=== PATIENT | female | born 1970 | race African-American/Black ===

== ENCOUNTER 2023-12-25 15:49 | Inpatient (IN) | payer MEDICAID ==
[~2023-12-25] VITALS: Ht 170.2 cm; Wt 97.1 kg
[2023-12-25] MEDS ORDERED: VANCOMYCIN 1G PREMIX 200 ML IV ONE (16:45)
[2023-12-25] MEDS: SODIUM CHLORIDE 0.9% 1000ML BAG (SEPSIS BOLUS) IV ONE (17:00)
[2023-12-25] MEDS: MORPHINE SULFATE 4 MG/ML CPJ (NOT FOR IM USE) IV STA ×2 (17:16→20:10)
[2023-12-25] MEDS: PIPERACILLIN/TAZO 3.375G/50ML 50 ML IV ONE (17:16)
[2023-12-25] MEDS: ONDANSETRON HCL 4MG/2ML INJ IV STA ×2 (17:16→20:10)
[2023-12-25 17:17] LABS: BASOPHILS % 0.6 % (0.0-2.0); DIFFERENTIAL COMMENT 0; EOSINOPHILS % 0.4 % (0.0-5.0); HEMATOCRIT. 41.6 % (36.0-48.0); HEMOGLOBIN. 13.3 g/dL (12.0-16.0); LYMPHOCYTES % 26.7 % (20.0-50.0); MEAN CORPUSCULAR HEMOGLOBIN 25.6 pg (28.0-32.0); MEAN CORPUSCULAR HGB CONC 32.1 g/dL (31.0-37.0); MEAN CORPUSCULAR VOLUME 79.7 fL (81.0-99.0); MEAN PLATELET VOLUME 10.2 fl (7.4-10.4); MONOCYTES % 4.6 % (2.0-8.0); NEUTROPHILS % 67.7 % (40.0-76.0); PLATELET 207 x1000/uL (130-400); RED BLOOD CELL COUNT 5.22 mill/uL (4.2-5.4); RED CELL DISTRIBUTION WIDTH 21.5 % (11.6-14.6); WHITE BLOOD COUNT 7.9 x1000/uL (4.5-11.0)
[2023-12-25 17:29] LABS: ALANINE AMINOTRANSFERASE 15 IU/L (10-49); ALBUMIN 4.4 g/dL (3.2-4.8); ASPARTATE AMINOTRANSFERASE 20 IU/L (<34); BILIRUBIN TOTAL 0.4 mg/dL (0.1-1.0); CALCIUM 9.4 mg/dL (8.7-10.4); CARBON DIOXIDE 23 mEq/L (21-32); CHLORIDE 104 mEq/L (98-107); CREATININE 0.7 mg/dL (0.6-1.0); GLUCOSE 238 mg/dL (70-105); POTASSIUM 3.5 mEq/L (3.5-5.1); PROTEIN TOTAL 7.7 g/dL (6.0-8.3); SODIUM 137 mEq/L (136-145); UREA NITROGEN BLOOD 7 mg/dL (9-23)
[2023-12-25 17:31] LABS: TROPONIN I HIGH SENSITIVITY < 4 ng/L (3.0-34)
[2023-12-25 20:14] LABS: PARTIAL THROMBOPLASTIN TIME 24.3 sec (23.4-31.0); PROTHROMBIN TIME 10.7 sec (9.6-11.0)
[2023-12-25] MEDS: VANCOMYCIN 1G PREMIX 200 ML IV NR (20:49)
[2023-12-25 23:05] VITALS: BP 136/79; PULSE 90; RESP 18; TEMP 98.6
[2023-12-26] VITALS: BP 136/79; PULSE 95; RESP 20; TEMP 98.6
[2023-12-26] MEDS ORDERED: DOCUSATE SODIUM 100MG CAPSULE PO PRN (00:30)
[2023-12-26] MEDS ORDERED: IPRATROPIUM/ALBUTEROL 0.5-3(2.5)MG/3ML NEB HHN PRN (00:30)
[2023-12-26] MEDS ORDERED: DEXTROSE 50% WATER 50ML SYRINGE IV PRN (00:30)
[2023-12-26] MEDS ORDERED: ACETAMINOPHEN 325MG TABLET PO PRN (00:30)
[2023-12-26] MEDS ORDERED: MAGNESIUM/ALUMINUM HYDROXIDE/SIMETHICONE 30ML UDC PO PRN (00:30)
[2023-12-26] MEDS ORDERED: ONDANSETRON HCL 4MG/2ML INJ IV PRN (00:30)
[2023-12-26] MEDS ORDERED: NALOXONE HCL 0.4MG/ML VIAL IV PRN (00:45)
[2023-12-26] MEDS: PANTOPRAZOLE SODIUM 40 MG/VIAL IV SCH (01:17)
[2023-12-26] MEDS: SODIUM CHLORIDE 0.9% 1,000 ML IV ONE (01:18)
[2023-12-26] MEDS: MORPHINE SULFATE 2 MG/ML CPJ (NOT FOR IM USE) IV PRN (01:19)
[2023-12-26] MEDS: AMLODIPINE 5MG TABLET PO SCH (01:45)
[2023-12-26 04:00] VITALS: BP 123/85; PULSE 89; RESP 20; TEMP 98.1
[2023-12-26] MEDS: BLOOD SUGAR DIAGNOSTIC STRIP TEST SCH (05:50)
[2023-12-26] MEDS: ASPIRIN 81MG TABLET PO NR ×2 (05:50→08:37)
[2023-12-26 06:50] LABS: CLARITY URINE CLEAR (CLEAR); COLOR URINE YELLOW (YELLOW); GLUCOSE URINE 1+ (NEGATIVE); KETONES URINE 1+ (NEGATIVE); LEUKOCYTE ESTERASE URINE NEGATIVE (NEGATIVE); NITRITE URINE NEGATIVE (NEGATIVE); OCCULT BLOOD URINE NEGATIVE (NEGATIVE); PROTEIN URINE NEGATIVE (NEGATIVE)
[2023-12-26 07:24] LABS: HEMATOCRIT 35.9 % (36.0-48.0); HEMOGLOBIN 11.6 g/dL (12.0-16.0); MEAN CORPUSCULAR HEMOGLOBIN 25.5 pg (28.0-32.0); MEAN CORPUSCULAR HGB CONC 32.2 g/dL (31.0-37.0); MEAN CORPUSCULAR VOLUME 79.2 fL (81.0-99.0); PLATELET 177 x1000/uL (130-400); RED BLOOD CELL COUNT 4.53 mill/uL (4.2-5.4); RED CELL DISTRIBUTION WIDTH 21.6 % (11.6-14.6); WHITE BLOOD COUNT 6.1 x1000/uL (4.5-11.0)
[2023-12-26 07:28] LABS: *AMPHETAMINES SCREEN URINE NEGATIVE (NEGATIVE); *BARBITURATES SCREEN URINE NEGATIVE (NEGATIVE); *BENZODIAZEPINES SCREEN URINE NEGATIVE (NEGATIVE); *COCAINE SCREEN URINE NEGATIVE (NEGATIVE); CANNABINOID URINE SCREEN PRESUMPTIVE POSITIVE (NEGATIVE); ECSTASY MDMA SCREEN URINE NEGATIVE (NEGATIVE); METHADONE URINE SCREEN Neg (NEGATIVE); OPIATES URINE SCREEN PRESUMPTIVE POSITIVE (NEGATIVE); PHENCYCLIDINE URINE SCREEN NEGATIVE (NEGATIVE)
[2023-12-26 07:37] LABS: CALCIUM 8.8 mg/dL (8.7-10.4); CARBON DIOXIDE 26 mEq/L (21-32); CHLORIDE 103 mEq/L (98-107); CREATINE KINASE 62 IU/L (34-145); CREATININE 0.6 mg/dL (0.6-1.0); GLUCOSE 181 mg/dL (70-105); IRON 59 ug/dL (50-170); POTASSIUM 3.1 mEq/L (3.5-5.1); SODIUM 138 mEq/L (136-145); TOTAL IRON BINDING CAPACITY 182 ug/dl (250-425); UREA NITROGEN BLOOD 9 mg/dL (9-23)
[2023-12-26 07:44] LABS: SQUAMOUS EPITHELIAL CELL URINE FEW /lpf (RARE/1+)
[2023-12-26 07:47] LABS: RBC URINE 0-2 /hpf (0-2); WBC URINE 0-2 /hpf (0-2)
[2023-12-26 07:48] LABS: BACTERIA URINE NONE SEEN
[2023-12-26 08:00] VITALS: BP 147/93; PULSE 91; RESP 18; TEMP 98.1
[2023-12-26] MEDS ORDERED: HEPARIN 1000 UNITS/ML 10ML ONE ×2 (08:07→10:14)
[2023-12-26] MEDS ORDERED: IODIXANOL 320MG/ML 100 ML BOTTLE IV ONE ×3 (08:07→10:15)
[2023-12-26] MEDS ORDERED: LIDOCAINE HCL 1% 20ML VIAL (Pyxis) INJ ONE (08:07)
[2023-12-26] MEDS: INSULIN LISPRO 100 UNITS/ML SUBCUT SCH (08:38)
[2023-12-26] MEDS ORDERED: KCL 20MEQ/100ML PREMIX 100 ML IV ONE (08:54)
[2023-12-26] MEDS ORDERED: MIDAZOLAM HCL 2 MG/2 ML VIAL ONE (09:00)
[2023-12-26] MEDS ORDERED: FENTANYL CITRATE/PF 50MCG/ML 2ML VIAL ONE ×2 (09:00→11:02)
[2023-12-26] MEDS: KCL 20MEQ/100ML PREMIX 100 ML IV SCH (10:30)
[2023-12-26] MEDS ORDERED: IOHEXOL-350 100 ML BOTTLE ONE (11:29)
[2023-12-26 12:00] VITALS: BP 127/51; PULSE 76; RESP 18; TEMP 98.6
[2023-12-26] MEDS ORDERED: CLOPIDOGREL 75MG TABLET ONE (12:06)
[2023-12-26] MEDS: SODIUM CHLORIDE 0.9% 1,000 ML IV SCH (12:53)
[2023-12-26] MEDS: POTASSIUM CHLORIDE 20MEQ TABLET SR PO NR (15:21)
[2023-12-26 16:00] VITALS: BP 156/100; PULSE 91; RESP 18; TEMP 98
[2023-12-26 16:26] LABS: CREATINE KINASE 57 IU/L (34-145)
[2023-12-26] MEDS: INSULIN LISPRO 100 UNITS/ML SUBCUT ONE (17:45)
[2023-12-26] MEDS: INSULIN LISPRO 100 UNITS/ML SUBCUT NR (18:09)
[2023-12-26 20:00] VITALS: BP 140/75; PULSE 91; RESP 18; TEMP 97.2
[2023-12-26] MEDS: ATORVASTATIN CALCIUM 40MG TABLET PO SCH (21:11)
[2023-12-27] VITALS: BP 145/91; PULSE 85; RESP 18; TEMP 97.5
[2023-12-27 04:00] VITALS: BP 134/92; PULSE 89; RESP 19; TEMP 97.3
[2023-12-27 06:24] LABS: BASOPHILS % 0.3 % (0.0-2.0); DIFFERENTIAL COMMENT 0; EOSINOPHILS % 0.7 % (0.0-5.0); HEMATOCRIT. 36.3 % (36.0-48.0); HEMOGLOBIN. 12.2 g/dL (12.0-16.0); LYMPHOCYTES % 24.1 % (20.0-50.0); MEAN CORPUSCULAR HEMOGLOBIN 26.2 pg (28.0-32.0); MEAN CORPUSCULAR HGB CONC 33.5 g/dL (31.0-37.0); MEAN CORPUSCULAR VOLUME 78.2 fL (81.0-99.0); MEAN PLATELET VOLUME 10.6 fl (7.4-10.4); MONOCYTES % 5.7 % (2.0-8.0); NEUTROPHILS % 69.2 % (40.0-76.0); PLATELET 172 x1000/uL (130-400); RED BLOOD CELL COUNT 4.65 mill/uL (4.2-5.4); RED CELL DISTRIBUTION WIDTH 21.6 % (11.6-14.6); WHITE BLOOD COUNT 5.4 x1000/uL (4.5-11.0)
[2023-12-27 06:39] LABS: T4 FREE 1.05 ng/dL (0.89-1.76); THYROID STIMULATING HORMONE 2.11 uIU/mL (0.55-4.78)
[2023-12-27 08:00] VITALS: BP 134/92; PULSE 88; RESP 19; TEMP 97.3
[2023-12-27] MEDS: ASPIRIN 81MG TABLET PO SCH (09:17)
[2023-12-27 10:11] VITALS: BP 130/52; PULSE 85; TEMP 97.5; O2SAT 100
[2023-12-27 10:46] VITALS: BP 138/82; PULSE 85; RESP 19; TEMP 97.3
[2023-12-27 12:00] VITALS: BP 138/81; PULSE 83; RESP 20; TEMP 97.3
[2023-12-28] MEDS ORDERED: FAMOTIDINE 20MG TABLET PO SCH (09:00)
== END 2023-12-27 13:10 | disposition home or self-care (01) | DRG 182 ==
LOC: ER 15:49 → 7WST 21:35 → EDBEDREQTM 21:48 → EDBEDREQ 21:48
PROVIDERS: ADMIT Hospitalist; ATTEND Hospitalist
PROC: 047P3ZZ Dilation of Right Anterior Tibial Artery, Percutaneous Approach (ICD-10-PCS; principal; 2023-12-26)
PROC: B41D1ZZ Fluoroscopy of Aorta and Bilateral Lower Extremity Arteries using Low Osmolar Contrast (ICD-10-PCS; 2023-12-26)
PROC: 04CP3ZZ Extirpation of Matter from Right Anterior Tibial Artery, Percutaneous Approach (ICD-10-PCS; 2023-12-26)
PROC: 047M3ZZ Dilation of Right Popliteal Artery, Percutaneous Approach (ICD-10-PCS; 2023-12-26)
DX: E11.51 Type 2 diabetes mellitus with diabetic peripheral angiopathy without gangrene (principal); I70.221 Atherosclerosis of native arteries of extremities with rest pain, right leg; D50.9 Iron deficiency anemia, unspecified; E66.01 Morbid (severe) obesity due to excess calories; F17.210 Nicotine dependence, cigarettes, uncomplicated; F12.90 Cannabis use, unspecified, uncomplicated; I10 Essential (primary) hypertension; Z79.01 Long term (current) use of anticoagulants; Z79.4 Long term (current) use of insulin; Z79.82 Long term (current) use of aspirin; Z79.899 Other long term (current) drug therapy; Z68.33 Body mass index [BMI] 33.0-33.9, adult
CPT/HCPCS: 36415; 71045; 75635; 80048; 80053; 80061; 80305; 81003; 82550; 82728; 82962; 83036; 83540; 83550; 83880; 84439; 84443; 84484; 85025; 85027; 85347; 86850; 86900; 93005; 93970; 99285; C9113; J1644; J1815; J2250; J2270; J2405; J2543; J3010; J3370; J3480; J3490; J7030; Q9967

== ENCOUNTER 2024-02-08 16:05 | Emergency (ER) | payer MEDICAID ==
[~2024-02-08] VITALS: Ht 170.2 cm; Wt 94.0 kg
[2024-02-08 16:45] VITALS: BP 120/72; PULSE 76; RESP 16; TEMP 97.7; O2SAT 99
== END 2024-02-08 18:38 | disposition home or self-care (01) ==
LOC: ER 16:05
DX: Z45.2 Encounter for adjustment and management of vascular access device (principal); E11.9 Type 2 diabetes mellitus without complications; I10 Essential (primary) hypertension
CPT/HCPCS: 99281

== ENCOUNTER 2024-02-09 18:07 | Emergency (ER) | payer MEDICAID ==
[~2024-02-09] VITALS: Ht 170.2 cm; Wt 94.0 kg
[2024-02-09 18:19] VITALS: O2SAT 100
[2024-02-09 19:53] LABS: BASOPHILS % 0.4 % (0.0-2.0); EOSINOPHILS % 1.8 % (0.0-5.0); HEMATOCRIT. 43.4 % (36.0-48.0); HEMOGLOBIN. 12.6 g/dL (12.0-16.0); LYMPHOCYTES % 39.8 % (20.0-50.0); MEAN CORPUSCULAR HEMOGLOBIN 25.5 pg (28.0-32.0); MEAN PLATELET VOLUME 8.9 fl (7.4-10.4); MONOCYTES % 4.6 % (2.0-8.0); NEUTROPHILS % 53.4 % (40.0-76.0); PLATELET 241 x1000/uL (130-400); RED BLOOD CELL COUNT 4.94 mill/uL (4.2-5.4); RED CELL DISTRIBUTION WIDTH 22.8 % (11.6-14.6)
[2024-02-09 19:55] LABS: ADD RBC MORPHOLOGY YES; DIFFERENTIAL COMMENT 1
[2024-02-09 19:56] LABS: ALANINE AMINOTRANSFERASE 75 IU/L (10-49); ALBUMIN 4.1 g/dL (3.2-4.8); ASPARTATE AMINOTRANSFERASE 56 IU/L (<34); BILIRUBIN TOTAL 0.4 mg/dL (0.1-1.0); CALCIUM 9.1 mg/dL (8.7-10.4); CARBON DIOXIDE 25 mEq/L (21-32); CHLORIDE 107 mEq/L (98-107); CREATININE 0.7 mg/dL (0.6-1.0); GLUCOSE 237 mg/dL (70-105); POTASSIUM 3.3 mEq/L (3.5-5.1); PROTEIN TOTAL 7.8 g/dL (6.0-8.3); SODIUM 140 mEq/L (136-145); UREA NITROGEN BLOOD 6 mg/dL (9-23)
[2024-02-09 20:11] LABS: PLATELET ESTIMATE NORMAL
[2024-02-09 20:12] LABS: ANISOCYTOSIS 2+
[2024-02-09 22:40] VITALS: TEMP 98.2
[2024-02-09] MEDS ORDERED: HYDROCODONE/ACETAMINOPHEN 10/325MG TABLET PO ONE (22:45)
[2024-02-09 22:49] VITALS: BP 128/88; PULSE 90; RESP 18
[2024-02-09] MEDS: HYDROCODONE/ACETAMINOPHEN 10/325MG TABLET PO NR (22:49)
== END 2024-02-09 22:55 | disposition home or self-care (01) ==
LOC: ER 18:07
DX: M86.9 Osteomyelitis, unspecified (principal); E11.9 Type 2 diabetes mellitus without complications; I10 Essential (primary) hypertension
CPT/HCPCS: 36415; 80053; 85025; 99283

== ENCOUNTER 2024-02-11 10:21 | Emergency (ER) | payer MEDICAID ==
[~2024-02-11] VITALS: Ht 170.2 cm; Wt 101.0 kg
[2024-02-11 10:38] VITALS: O2SAT 100
[2024-02-11] MEDS ORDERED: LIDOCAINE HCL 1% 10 MG/ML 10ML VIAL ONE (12:27)
[2024-02-11 13:47] VITALS: BP 143/93; PULSE 71; RESP 18; TEMP 98.7
== END 2024-02-11 13:55 | disposition home or self-care (01) ==
LOC: ER 10:21
DX: Z95.9 Presence of cardiac and vascular implant and graft, unspecified (principal); E11.9 Type 2 diabetes mellitus without complications; I10 Essential (primary) hypertension
CPT/HCPCS: 36573; 99281; J3490; Z7610; C1725